=== PATIENT | female | born 1935 | race Caucasian/White ===

== ENCOUNTER 2016-10-09 10:17 | Inpatient (IN) | payer MEDICARE, BC, OTHER ==
[~2016-10-09 10:17] MED LIST: ARTIFICIAL TEA3.5 G3 EACH EYE; CARTIA XT120 M1 PO; COUMADIN7.5 M1 PO; CPAP; FISH OIL 11000 MG/CA PO; METOPROLOL TAR100 M2 PO; NORCO 7.5-3251 EACH PO; PRESERVISION A1 EAC4 PO; TYLENOL PM EX-1 EAC4 PO; TYLENOL325 M2 PO; VESICARE10 M1 PO
[2016-10-09 11:57] LABS: INR 1.1 INR (0.9-1.1); PROTHROMBIN TIME 12.3 SECONDS (9.0-13.6)
[2016-10-10 05:52] LABS: BASO % 0.1 % (0-2); HCT-HEMATOCRIT 36.6 % (34.0-49.0); HGB-HEMOGLOBIN 12.5 gm/dl (12.0-15.5); IMMATURE GRANULOCYTES ABSOLUTE 0.02 tho/cmm (0-0.03); IMMATURE GRANULOCYTES PERCENT 0.2 % (0-0.3); LYMPH ABSOLUTE COUNT 0.9 tho/cmm (0.8-4.5); MCH (MEAN CORPUSCULAR HGB) 32.6 pg (28.0-32.0); MCHC MEAN CORPUSCULAR HGB CONC 34.2 % (32.0-36.0); MCV (MEAN CELL VOLUME) 95.6 fl (82.0-96.0); MEAN PLATELET VOLUME 9.6 cmc (9.4-12.4); MONO % 5.5 % (0-12); MONOCYTE ABSOLUTE COUNT 0.6 tho/cmm (0.0-1.2); NEUTROPHIL ABSOLUTE COUNT 9.4 tho/cmm (1.6-8.0); NEUTROPHIL-AUTOMATED 9.4 tho/cmm (1.6-8.0); NEUTROPHILS % 86.2 % (40-80); PLATELET COUNT 197 tho/cmm (150-450); RED BLOOD COUNT 3.83 mil/cmm (4.00-5.20); RED CELL DISTRIBUTION WIDTH 12.9 % (12.4-16.4); WHITE BLOOD COUNT 10.9 tho/cmm (4.0-10.0)
[2016-10-10 06:13] LABS: ANION GAP 14 mmol/L (0-20); BLOOD UREA NITROGEN 13 mg/dl (6-24); CALCIUM 8.4 mg/dl (8.5-10.5); CARBON DIOXIDE-VENOUS 25 mmol/L (22-32); CHLORIDE 103 mmol/l (96-110); CREATININE 0.66 mg/dl (0.50-1.10); GLUCOSE 166 mg/dL (70-110); SODIUM 137 mmol/L (135-145); eGFR VALUE FOR BLACK >90 mL/Min
[2016-10-10 06:33] LABS: TSH-THYROID STIMULATING HORM. 0.53 uIU/ml (0.40-3.80)
[2016-10-10 11:25] LABS: INR 1.2 INR (0.9-1.1); PROTHROMBIN TIME 13.5 SECONDS (9.0-13.6)
[2016-10-11 06:43] LABS: INR 1.1 INR (0.9-1.1)
[2016-10-11] MEDS ORDERED: ULTRAM50 M1 PO (09:24)
[2016-10-11] MEDS ORDERED: MIRALAX17 G2 PO (09:27)
[2016-10-11] MEDS ORDERED: ZOFRAN4 M2 PO (09:28)
== END 2016-10-11 15:20 | DRG 470 ==
LOC: SHSB 10:17 → ORE 13:28 → PACU 15:24 → 5EA 16:25
PROVIDERS: ADMIT Orthopaedic Surgery Sports Medicine
PROC: 0SRB02Z Replacement of Left Hip Joint with Metal on Polyethylene Synthetic Substitute, Open Approach (ICD-10-PCS; principal; 2016-10-09)
DX: M16.12 Unilateral primary osteoarthritis, left hip (principal); Z68.41 Body mass index [BMI] 40.0-44.9, adult; I48.91 Unspecified atrial fibrillation; I10 Essential (primary) hypertension; E66.9 Obesity, unspecified
CPT/HCPCS: C1776; J0171; J1650; J1885; J2270; J2795; J3010